=== PATIENT | female | born 1995 | race American Indian/Alaskan Native ===

== ENCOUNTER 2020-02-18 08:22 | Emergency (ER) | payer MEDICAID ==
[2020-02-18 08:29] VITALS: BP 115/75
--- NOTE | 2020-02-18 09:28 | Emergency Department Report ---
ED General Adult HPI - General Chief complaint: Abdominal Pain Stated complaint: KNOT ON STOMACH Time Seen by Provider: 02/18/20 09:13 Source: patient Mode of arrival: Ambulatory Limitations: No Limitations - History of Present Illness Initial comments: Is a pleasant 24-year-old female presents emerged department chief complaint of a painful bump on the left lower chest wall left upper abdominal wall that she noticed this morning. She denies any injuries. Denies any associated fever, chills, night sweats, headache, dizziness, blurry vision, nausea, vomiting, diarrhea, chest pain, shortness of breath. She denies any known past medical history, current medication use or known allergies to medications. She reports the pain is 6 out of 10 and aggravated by palpation and rubbing of her bra. - Related Data Previous Rx's Medication Instructions Recorded Last Taken Type Naproxen [Naprosyn TAB] 500 mg PO BID #20 tablet 02/18/20 Unknown Rx Sulfamethoxazole/Trimethoprim 1 each PO BID #20 tablet 02/18/20 Unknown Rx [Bactrim DS TAB] Allergies Allergy/AdvReac Type Severity Reaction Status Date / Time No Known Allergies Allergy Unverified 02/18/20 08:29 ED Review of Systems ROS: Stated complaint: KNOT ON STOMACH Other details as noted in HPI Comment: All other systems reviewed and negative Constitutional: denies: chills, fever Eyes: denies: eye pain, eye discharge, vision change ENT: denies: ear pain, throat pain Respiratory: denies: cough, shortness of breath, wheezing Cardiovascular: denies: chest pain, palpitations Endocrine: no symptoms reported Gastrointestinal: denies: abdominal pain, nausea, diarrhea Genitourinary: denies: urgency, dysuria, discharge Musculoskeletal: denies: back pain, joint swelling, arthralgia Skin: as per HPI, lesions. denies: rash Neurological: denies: headache, weakness, paresthesias Psychiatric: denies: anxiety, depression Hematological/Lymphatic: denies: easy bleeding, easy bruising ED Past Medical Hx - Past Medical History Previous Medical History?: No - Social History Smoking Status: Never Smoker Substance Use Type: Alcohol - Medications Home Medications: Home Medications Medication Instructions Recorded Confirmed Last Taken Type Naproxen [Naprosyn TAB] 500 mg PO BID #20 tablet 02/18/20 Unknown Rx Sulfamethoxazole/Trimethoprim 1 each PO BID #20 tablet 02/18/20 Unknown Rx [Bactrim DS TAB] ED Physical Exam - General Limitations: No Limitations General appearance: alert, in no apparent distress - Head Head exam: Present: atraumatic, normocephalic - Eye Eye exam: Present: normal appearance, PERRL, EOMI Pupils: Present: normal accommodation - ENT ENT exam: Present: normal exam, normal orophraynx, mucous membranes moist - Neck Neck exam: Present: normal inspection, full ROM. Absent: tenderness, meningismus - Respiratory Respiratory exam: Present: normal lung sounds bilaterally. Absent: respiratory distress, wheezes, rales, rhonchi, stridor - Cardiovascular Cardiovascular Exam: Present: regular rate, normal rhythm, normal heart sounds. Absent: systolic murmur, diastolic murmur, rubs, gallop - GI/Abdominal GI/Abdominal exam: Present: soft, normal bowel sounds. Absent: distended, tenderness, guarding, rebound, rigid - Extremities Exam Extremities exam: Present: normal inspection, full ROM. Absent: tenderness - Back Exam Back exam: Present: normal inspection, full ROM. Absent: tenderness, CVA tenderness (R), CVA tenderness (L) - Neurological Exam Neurological exam: Present: alert, oriented X3, normal gait - Psychiatric Psychiatric exam: Present: normal affect, normal mood - Skin Skin exam: Present: warm, dry, intact, normal color, other (There is a blackhead to the left lower chest wall under her bra with some mild firm cyst measuring approximately 1 cm deep to this. There is no erythema. There is no drainage. There is no fluctuance.). Absent: rash ED Course Vital Signs 02/18/20 08:25 Temperature 98 F Pulse Rate 78 Respiratory 16 Rate Blood Pressure 115/75 O2 Sat by Pulse 99 Oximetry ED Medical Decision Making - Medical Decision Making Patient exam was consistent with a blackhead with a possible early abscess. There was a completely benign abdominal exam. This was mobile and the edges were palpated easily confirming this was superficial. She had no chest pain, shortness of breath, no belly pain or any other GI related symptoms. She was unsure of her current status and test was ordered and negative. She will be given anti-inflammatories, recommended warm compresses 5 minutes each hour and Bactrim. I did discuss incision and drainage however she politely declined due to her concern for scarring which I agree. She was instructed to return the emerge part immediately develops any change or worsening symptoms. She verbalized understanding the diagnosis, treatment plan and follow-up instructions and all of her questions were answered. - Differential Diagnosis Abscess, cellulitis, carbuncle, blackhead Critical care attestation.: If time is entered above; I have spent that time in minutes in the direct care of this critically ill patient, excluding procedure time. ED Disposition Clinical Impression: Ramos Disposition: DC-01 TO HOME OR SELFCARE Is pt being admited?: No Condition: Stable Instructions: Abdominal Pain (ED) Prescriptions: Sulfamethoxazole/Trimethoprim [Bactrim DS TAB] 1 each PO BID #20 tablet Naproxen [Naprosyn TAB] 500 mg PO BID #20 tablet Referrals: MINDY PERDUE MD [Staff Physician] - 3-5 Days Time of Disposition: 09:27
[2020-02-18 09:55] LABS: HCG Qualitative,Urine Negative (Negative)
== END 2020-02-18 10:03 | disposition home or self-care (01) ==
LOC: ED 08:22
DX: L70.0 Acne vulgaris (principal); Z79.899 Other long term (current) drug therapy
CPT/HCPCS: 81025; 99283

== ENCOUNTER 2020-03-21 09:58 | Emergency (ER) | payer MEDICAID ==
[2020-03-21 10:17] VITALS: BP 136/79
--- NOTE | 2020-03-21 10:41 | Emergency Department Report ---
- General Chief Complaint: Upper Respiratory Infection Stated Complaint: BODY ACHES/COUGH Time Seen by Provider: 03/21/20 10:14 Source: patient Mode of arrival: Ambulatory Limitations: No Limitations - History of Present Illness Initial Comments: This is a 24-year-old female nontoxic well in appearnce with no signs of distress presents with sore throat, body aches and productive cough x several days. Patient denies any chest pain, shortness of breathe, fever, chills, nausea, vomiting, headache, stiff neck, abdominal pain, numbness or tingling. Patient denies any recent travels, long car rides, or recent hospital stays. Denies any allergies or significant PMH. MD Complaint: cough, sore throat, rhinorrhea, nasal congestion -: days(s) Severity: mild Severity scale (0 -10): 8 Quality: aching Consistency: constant Improves With: nothing Worsens With: other (swallowing) Associated Symptoms: rhinorrhea, nasal congestion, sore throat, cough. denies: fever, chills, myalgias, diaphoresis, headache, stiff neck, chest pain, shortness of breath, abdominal pain, nausea, vomiting, diarrhea, dysuria, rash, confusion, right sweats, weight loss, epistaxis, hoarseness, ear pain Treatments Prior to Arrival: none - Related Data Previous Rx's Medication Instructions Recorded Last Taken Type Naproxen [Naprosyn TAB] 500 mg PO BID #20 tablet 02/18/20 Unknown Rx Sulfamethoxazole/Trimethoprim 1 each PO BID #20 tablet 02/18/20 Unknown Rx [Bactrim DS TAB] Azithromycin [Zithromax Z-ARTUR] 250 mg PO DAILY #6 tablet 03/21/20 Unknown Rx Benzonatate [Tessalon Perles] 100 mg PO Q8HR PRN #12 capsule 03/21/20 Unknown Rx Allergies Allergy/AdvReac Type Severity Reaction Status Date / Time No Known Allergies Allergy Unverified 02/18/20 08:29 ED Review of Systems ROS: Stated complaint: BODY ACHES/COUGH Other details as noted in HPI Comment: All other systems reviewed and negative Constitutional: denies: chills, fever Eyes: denies: eye pain, eye discharge, vision change ENT: throat pain, congestion. denies: ear pain Respiratory: cough. denies: shortness of breath, wheezing Cardiovascular: denies: chest pain, palpitations Endocrine: no symptoms reported Gastrointestinal: denies: abdominal pain, nausea, diarrhea Genitourinary: denies: urgency, dysuria, discharge Musculoskeletal: denies: back pain, joint swelling, arthralgia Skin: denies: rash, lesions Neurological: denies: headache, weakness, paresthesias Psychiatric: denies: anxiety, depression Hematological/Lymphatic: denies: easy bleeding, easy bruising ED Past Medical Hx - Past Medical History Previous Medical History?: No - Surgical History Past Surgical History?: No - Social History Smoking Status: Never Smoker Substance Use Type: Alcohol - Medications Home Medications: Home Medications Medication Instructions Recorded Confirmed Last Taken Type Naproxen [Naprosyn TAB] 500 mg PO BID #20 tablet 02/18/20 Unknown Rx Sulfamethoxazole/Trimethoprim 1 each PO BID #20 tablet 02/18/20 Unknown Rx [Bactrim DS TAB] Azithromycin [Zithromax Z-ARTUR] 250 mg PO DAILY #6 tablet 03/21/20 Unknown Rx Benzonatate [Tessalon Perles] 100 mg PO Q8HR PRN #12 capsule 03/21/20 Unknown Rx ED Physical Exam - General Limitations: No Limitations General appearance: alert, in no apparent distress - Head Head exam: Present: atraumatic, normocephalic - Eye Eye exam: Present: normal appearance - Expanded ENT Exam Expanded Ear exam: Present: normal external inspection Mouth exam: Present: normal external inspection, tongue normal. Absent: drooling, trismus, muffled voice Teeth exam: Present: normal inspection. Absent: dental caries, fractured tooth #, dental tenderness #, gingival enlargement Throat exam: Positive: tonsillar erythema, other (uvula midline). Negative: tonsillomegaly, tonsillar exudate, R peritonsillar mass, L peritonsillar mass - Neck Neck exam: Present: normal inspection, full ROM. Absent: tenderness, meningismus, lymphadenopathy - Respiratory Respiratory exam: Present: normal lung sounds bilaterally. Absent: respiratory distress, wheezes, rales, rhonchi, stridor, chest wall tenderness, accessory muscle use, decreased breath sounds, prolonged expiratory - Cardiovascular Cardiovascular Exam: Present: regular rate, normal rhythm, normal heart sounds. Absent: bradycardia, tachycardia, irregular rhythm, systolic murmur, diastolic murmur, rubs, gallop - Extremities Exam Extremities exam: Present: full ROM - Back Exam Back exam: Present: full ROM - Neurological Exam Neurological exam: Present: alert, oriented X3, normal gait - Psychiatric Psychiatric exam: Present: normal affect, normal mood - Skin Skin exam: Present: warm, dry, intact, normal color. Absent: rash ED Course Vital Signs 03/21/20 10:16 Temperature 97.9 F Pulse Rate 85 Respiratory 16 Rate Blood Pressure 136/79 [Right] O2 Sat by Pulse 98 Oximetry - Reevaluation(s) Reevaluation #1: 03/21/20 10:40 Patient is speaking in full sentences with no signs of distress noted. ED Medical Decision Making - Radiology Data Referring Physician: RICHI BENDER Patient Name: SHIVA JAUREGUI Date of : 1995 Sex: Female Report Date: 2020-03-21 Report Status: [place] [id number] XRay Report Signed Patient: SHIVA JAUREGUI MR#: [id number] : 1995 Acct:[id number] Age/Sex: 24 / F ADM Date: 03/21/20 Loc: ED Attending Dr: Ordering Physician: RICHI BENDER NP Date of Service: 03/21/20 Procedure(s): XR chest routine 2V Accession Number(s): [id number] cc: RICHI BENDER NP Fluoro Time In Minutes: CHEST 2 VIEWS INDICATION / CLINICAL INFORMATION: coug. COMPARISON: None available. FINDINGS: SUPPORT DEVICES: None. HEART / MEDIASTINUM: No significant abnormality. LUNGS / PLEURA: No significant pulmonary or pleural abnormality. No pneumothorax. ADDITIONAL FINDINGS: No significant additional findings. IMPRESSION: 1. No acute findings. Signer Name: Andi Magana MD Signed: 03/21/2020 11:30 AM Workstation Name: [id number] Transcribed By: Dictated By: ANDI MAGANA Electronically Authenticated By: ANDI MAGANA Signed Date/Time: 03/21/20 1130 - Medical Decision Making 24-year-old female that presents with viral bronchitis like symptoms and pharyngitis. Patient is stable and was examined by me. Patient does not meet COVID-19 precautions but patient was educated and instructed to self quaratine if symptoms do occur. Patient was educated on OTC suppurative care and medications. Vital signs are stable. Patient was instructed to Follow-up with a primary care doctor in 3-5 days or if symptoms worsen and continue return to emergency room as soon as possible. At time of discharge, the patient does not seem toxic or ill in appearance. No acute signs of distress noted. Patient agrees to discharge treatment plan of care. No further questions noted by the patient. Critical care attestation.: If time is entered above; I have spent that time in minutes in the direct care of this critically ill patient, excluding procedure time. ED Disposition Clinical Impression: Viral bronchitis Pharyngitis Qualifiers: Pharyngitis/tonsillitis etiology: unspecified etiology Qualified Code(s): J02.9 - Acute pharyngitis, unspecified Disposition: - TO HOME OR SELFCARE Is pt being admited?: No Does the pt Need Aspirin: No Condition: Stable Instructions: Acute Bronchitis (ED), Pharyngitis (ED) Additional Instructions: Follow-up with a primary care doctor in 3-5 days or if symptoms worsen and continue return to the emergency department as soon as possible. Prescriptions: Benzonatate [Tessalon Perles] 100 mg PO Q8HR PRN #12 capsule PRN Reason: Cough Azithromycin [Zithromax Z-ARTUR] 250 mg PO DAILY #6 tablet Referrals: PRIMARY MD YONIS [Primary Care Provider] - 3-5 Days SALMA MARLEY MD [Staff Physician] - 3-5 Days Forms: Work/School Release Form(ED)
--- NOTE | 2020-03-21 11:34 | XRay Report ---
CHEST 2 VIEWS INDICATION / CLINICAL INFORMATION: coug. COMPARISON: None available. FINDINGS: SUPPORT DEVICES: None. HEART / MEDIASTINUM: No significant abnormality. LUNGS / PLEURA: No significant pulmonary or pleural abnormality. No pneumothorax. ADDITIONAL FINDINGS: No significant additional findings. IMPRESSION: 1. No acute findings. Signer Name: Andi Sneed MD Signed: 03/21/2020 11:30 AM Workstation Name: [id number]
== END 2020-03-21 12:12 | disposition home or self-care (01) ==
LOC: ED 09:58
DX: J20.8 Acute bronchitis due to other specified organisms (principal); Z79.899 Other long term (current) drug therapy
CPT/HCPCS: 71046; 99283